=== PATIENT | female | born 1955 | race Caucasian/White ===

== ENCOUNTER 2018-03-11 08:34 | Outpatient (CLI) | payer BC ==
--- NOTE | 2018-03-11 09:48 | RAD ---
LEFT SHOULDER THREE VIEWS: History: 62-year-old female with history of left shoulder pain. FINDINGS/IMPRESSION: Mild degenerative changes. No fracture, dislocation, or other significant acute osseous abnormality. POS: OFF
== END 2018-03-11 08:35 | disposition home or self-care (01) ==
LOC: BICRAD 08:34
PROVIDERS: ATTEND Family Medicine
DX: M25.512 Pain in left shoulder (principal); M19.012 Primary osteoarthritis, left shoulder; Z00.00 Encounter for general adult medical examination without abnormal findings; E78.2 Mixed hyperlipidemia; I10 Essential (primary) hypertension
CPT/HCPCS: 36415; 80053; 80061; 83036; 84443; 85025